=== PATIENT | male | born 1945 | race Caucasian/White ===

== ENCOUNTER 2017-04-26 14:29 | Outpatient (CLI) | END 2017-04-26 14:30 | disposition home or self-care (01) | LOC: NONPT 14:29 | PROVIDERS: ATTEND Family Medicine | DX: J18.9 Pneumonia, unspecified organism (principal); C83.30 Diffuse large B-cell lymphoma, unspecified site | CPT/HCPCS: 80053; 85027 ==

== ENCOUNTER 2017-05-03 09:15 | Outpatient (CLI) | END 2017-05-03 09:16 | disposition home or self-care (01) | LOC: NONPT 09:15 | PROVIDERS: ATTEND Family Medicine | DX: I50.9 Heart failure, unspecified (principal); C83.30 Diffuse large B-cell lymphoma, unspecified site | CPT/HCPCS: 80053; 85025 ==

== ENCOUNTER 2017-05-24 10:11 | Outpatient (CLI) | END 2017-05-24 10:12 | disposition home or self-care (01) | LOC: NONPT 10:11 | PROVIDERS: ATTEND Family Medicine | DX: I50.9 Heart failure, unspecified (principal); C83.30 Diffuse large B-cell lymphoma, unspecified site | CPT/HCPCS: 80053; 85027 ==

== ENCOUNTER 2017-05-31 12:54 | Outpatient (CLI) | END 2017-05-31 12:55 | disposition home or self-care (01) | LOC: NONPT 12:54 | PROVIDERS: ATTEND Family Medicine | DX: I50.9 Heart failure, unspecified (principal); C85.90 Non-Hodgkin lymphoma, unspecified, unspecified site | CPT/HCPCS: 80053; 85025; 85027 ==

== ENCOUNTER 2017-06-07 11:23 | Outpatient (CLI) | END 2017-06-07 11:24 | disposition home or self-care (01) | LOC: NONPT 11:23 | PROVIDERS: ATTEND Family Medicine | DX: C85.90 Non-Hodgkin lymphoma, unspecified, unspecified site (principal); E11.9 Type 2 diabetes mellitus without complications | CPT/HCPCS: 80053; 85025; 85027 ==

== ENCOUNTER 2017-06-14 11:18 | Outpatient (CLI) | END 2017-06-14 11:19 | disposition home or self-care (01) | LOC: NONPT 11:18 | PROVIDERS: ATTEND Family Medicine | DX: C85.90 Non-Hodgkin lymphoma, unspecified, unspecified site (principal); E11.9 Type 2 diabetes mellitus without complications; I50.9 Heart failure, unspecified | CPT/HCPCS: 80053; 85025; 85027 ==

== ENCOUNTER 2017-06-21 10:44 | Outpatient (CLI) | END 2017-06-21 10:45 | disposition home or self-care (01) | LOC: NONPT 10:44 | PROVIDERS: ATTEND Family Medicine | DX: C85.90 Non-Hodgkin lymphoma, unspecified, unspecified site (principal); E11.9 Type 2 diabetes mellitus without complications; I50.9 Heart failure, unspecified | CPT/HCPCS: 80053; 85027 ==

== ENCOUNTER 2017-06-28 10:24 | Outpatient (CLI) | END 2017-06-28 10:25 | disposition home or self-care (01) | LOC: NONPT 10:24 | PROVIDERS: ATTEND Family Medicine | DX: C85.90 Non-Hodgkin lymphoma, unspecified, unspecified site (principal); E11.9 Type 2 diabetes mellitus without complications; I50.9 Heart failure, unspecified | CPT/HCPCS: 80053; 85027 ==

== ENCOUNTER 2017-06-29 07:28 | Outpatient (CLI) ==
[2017-06-29] MEDS ORDERED: TYLENOL PO STA (11:07)
[2017-06-29] MEDS ORDERED: LASIX IVP STA (13:32)
[2017-06-29] MEDS ORDERED: BENADRYL 25 MG in SODIUM CHLORIDE 100 ML IV STA (13:32)
[2017-06-29] MEDS ORDERED: HEPARIN 500 UNIT/5 ML (PORT ACCESS TRAY ONLY) IVF ONE (15:16)
[2017-06-29 18:28] VITALS: BP 111/75; TEMP 97.9
== END 2017-06-29 07:29 | disposition home or self-care (01) ==
LOC: LAB 07:28 → OUTPT 07:29
PROVIDERS: ATTEND Internal Medicine Hematology & Oncology
DX: C85.10 Unspecified B-cell lymphoma, unspecified site (principal); D72.829 Elevated white blood cell count, unspecified; D50.9 Iron deficiency anemia, unspecified; E78.5 Hyperlipidemia, unspecified; I10 Essential (primary) hypertension; E11.9 Type 2 diabetes mellitus without complications; I35.0 Nonrheumatic aortic (valve) stenosis; I26.99 Other pulmonary embolism without acute cor pulmonale; G47.30 Sleep apnea, unspecified
CPT/HCPCS: 36415; 36430; 86850; 86900; 86922; 96365; 96366

== ENCOUNTER 2017-07-12 12:31 | Outpatient (CLI) | END 2017-07-12 12:32 | disposition home or self-care (01) | LOC: NONPT 12:31 | PROVIDERS: ATTEND Family Medicine | DX: C85.90 Non-Hodgkin lymphoma, unspecified, unspecified site (principal); I50.9 Heart failure, unspecified; E11.9 Type 2 diabetes mellitus without complications | CPT/HCPCS: 80053; 85027 ==

== ENCOUNTER 2017-07-13 07:29 | Outpatient (CLI) ==
[2017-07-13] MEDS ORDERED: LASIX IVP STA ×2 (11:34→14:54)
[2017-07-13] MEDS ORDERED: HEPARIN 500 UNIT/5 ML (PORT ACCESS TRAY ONLY) IVF ONE (15:16)
[2017-07-13] MEDS ORDERED: SALINE FLUSH (PORT ACCESS TRAY USE ONLY) IVF ONE (15:16)
[2017-07-13 15:55] VITALS: BP 122/68; TEMP 98.1
== END 2017-07-13 07:30 | disposition home or self-care (01) ==
LOC: LAB 07:29 → OUTPT 07:30
PROVIDERS: ATTEND Internal Medicine Hematology & Oncology
DX: C85.10 Unspecified B-cell lymphoma, unspecified site (principal); D72.829 Elevated white blood cell count, unspecified; D50.9 Iron deficiency anemia, unspecified; E78.5 Hyperlipidemia, unspecified; I10 Essential (primary) hypertension; E11.9 Type 2 diabetes mellitus without complications; G47.30 Sleep apnea, unspecified; I35.0 Nonrheumatic aortic (valve) stenosis; I26.99 Other pulmonary embolism without acute cor pulmonale
CPT/HCPCS: 36415; 36430; 86850; 86900; 86922; 96375

== ENCOUNTER 2017-07-19 13:01 | Outpatient (CLI) | payer OTHER | END 2017-07-19 13:02 | disposition home or self-care (01) | LOC: NONPT 13:01 | PROVIDERS: ATTEND Family Medicine | DX: C83.33 Diffuse large B-cell lymphoma, intra-abdominal lymph nodes (principal); E11.649 Type 2 diabetes mellitus with hypoglycemia without coma; I50.32 Chronic diastolic (congestive) heart failure | CPT/HCPCS: 80053; 85027 ==

== ENCOUNTER 2017-07-20 10:24 | Outpatient (CLI) | payer OTHER ==
[2017-07-20] MEDS ORDERED: TYLENOL PO STA (12:05)
[2017-07-20] MEDS ORDERED: BENADRYL 25 MG in SODIUM CHLORIDE 100 ML IV STA (12:06)
[2017-07-20] MEDS ORDERED: LASIX IVP PRN (12:06)
[2017-07-20] MEDS ORDERED: SALINE FLUSH (PORT ACCESS TRAY USE ONLY) IVF ONE (12:10)
[2017-07-20] MEDS ORDERED: HEPARIN 500 UNIT/5 ML (PORT ACCESS TRAY ONLY) IVF ONE (12:10)
[2017-07-20 17:11] VITALS: BP 108/71; TEMP 97.4
[2017-07-20] MEDS ORDERED: LASIX IVP STA (17:13)
== END 2017-07-20 17:20 | disposition home or self-care (01) ==
LOC: LAB 10:24 → OPMED 17:19
PROVIDERS: ATTEND Internal Medicine Hematology & Oncology
DX: C85.10 Unspecified B-cell lymphoma, unspecified site (principal); D50.9 Iron deficiency anemia, unspecified; I35.0 Nonrheumatic aortic (valve) stenosis; E78.5 Hyperlipidemia, unspecified; I10 Essential (primary) hypertension; D72.829 Elevated white blood cell count, unspecified; I26.99 Other pulmonary embolism without acute cor pulmonale; G47.30 Sleep apnea, unspecified; E11.9 Type 2 diabetes mellitus without complications
CPT/HCPCS: 36415; 36430; 86850; 86900; 86922; 96365; 96376

== ENCOUNTER 2017-07-26 11:57 | Outpatient (CLI) | END 2017-07-26 11:58 | disposition home or self-care (01) | LOC: NONPT 11:57 | PROVIDERS: ATTEND Family Medicine | DX: C83.33 Diffuse large B-cell lymphoma, intra-abdominal lymph nodes (principal); I50.32 Chronic diastolic (congestive) heart failure; E11.649 Type 2 diabetes mellitus with hypoglycemia without coma; D50.9 Iron deficiency anemia, unspecified | CPT/HCPCS: 80053; 85027 ==

== ENCOUNTER 2017-07-27 07:10 | Outpatient (CLI) | payer OTHER ==
[2017-07-27] MEDS ORDERED: TYLENOL PO STA (08:37)
[2017-07-27] MEDS ORDERED: BENADRYL 25 MG in SODIUM CHLORIDE 100 ML IV STA (08:39)
[2017-07-27] MEDS ORDERED: LASIX IVP STA ×2 (11:17→11:31)
[2017-07-27 13:30] VITALS: BP 105/66; TEMP 98.2
[2017-07-27] MEDS ORDERED: SALINE FLUSH (PORT ACCESS TRAY USE ONLY) IVF ONE (14:57)
[2017-07-27] MEDS ORDERED: HEPARIN 500 UNIT/5 ML (PORT ACCESS TRAY ONLY) IVF ONE (14:57)
== END 2017-07-27 07:11 | disposition home or self-care (01) ==
LOC: LAB 07:10 → OUTPT 07:11
PROVIDERS: ATTEND Internal Medicine Hematology & Oncology
DX: C85.10 Unspecified B-cell lymphoma, unspecified site (principal); D50.9 Iron deficiency anemia, unspecified; D72.829 Elevated white blood cell count, unspecified; E78.5 Hyperlipidemia, unspecified; I10 Essential (primary) hypertension; E11.9 Type 2 diabetes mellitus without complications; I35.0 Nonrheumatic aortic (valve) stenosis; I26.99 Other pulmonary embolism without acute cor pulmonale
CPT/HCPCS: 36415; 36430; 86850; 86900; 86922; 96365; 96376

== ENCOUNTER 2017-08-02 10:16 | Outpatient (CLI) | END 2017-08-02 10:17 | disposition home or self-care (01) | LOC: NONPT 10:16 | PROVIDERS: ATTEND Family Medicine | DX: C83.33 Diffuse large B-cell lymphoma, intra-abdominal lymph nodes (principal); D50.9 Iron deficiency anemia, unspecified; I50.32 Chronic diastolic (congestive) heart failure; E11.649 Type 2 diabetes mellitus with hypoglycemia without coma | CPT/HCPCS: 80053; 85027 ==

== ENCOUNTER 2017-08-03 08:41 | Outpatient (CLI) ==
[2017-08-03] MEDS ORDERED: TYLENOL PO STA (10:31)
[2017-08-03] MEDS ORDERED: BENADRYL 25 MG in SODIUM CHLORIDE 100 ML IV STA (10:31)
[2017-08-03] MEDS ORDERED: LASIX IVP STA ×2 (10:32→13:46)
[2017-08-03 15:34] VITALS: BP 99/63; TEMP 97.4
[2017-08-03] MEDS ORDERED: HEPARIN 500 UNIT/5 ML (PORT ACCESS TRAY ONLY) IVF ONE (15:38)
[2017-08-03] MEDS ORDERED: SALINE FLUSH (PORT ACCESS TRAY USE ONLY) IVF ONE (15:38)
== END 2017-08-03 15:50 | disposition home or self-care (01) ==
LOC: OPMED 08:41
PROVIDERS: ATTEND Internal Medicine Hematology & Oncology
DX: C85.10 Unspecified B-cell lymphoma, unspecified site (principal); D50.9 Iron deficiency anemia, unspecified; I35.0 Nonrheumatic aortic (valve) stenosis; D72.829 Elevated white blood cell count, unspecified; I26.99 Other pulmonary embolism without acute cor pulmonale; K92.2 Gastrointestinal hemorrhage, unspecified; I10 Essential (primary) hypertension; E78.5 Hyperlipidemia, unspecified; E11.9 Type 2 diabetes mellitus without complications; G47.30 Sleep apnea, unspecified
CPT/HCPCS: 36415; 36430; 86850; 86900; 86922

== ENCOUNTER 2017-08-09 10:10 | Outpatient (CLI) | END 2017-08-09 10:11 | disposition home or self-care (01) | LOC: NONPT 10:10 | PROVIDERS: ATTEND Family Medicine | DX: C83.33 Diffuse large B-cell lymphoma, intra-abdominal lymph nodes (principal); I50.32 Chronic diastolic (congestive) heart failure; E11.649 Type 2 diabetes mellitus with hypoglycemia without coma; D50.9 Iron deficiency anemia, unspecified | CPT/HCPCS: 80053; 85027 ==

== ENCOUNTER 2017-08-16 10:02 | Outpatient (CLI) | END 2017-08-16 10:03 | disposition home or self-care (01) | LOC: NONPT 10:02 | PROVIDERS: ATTEND Family Medicine | DX: C83.33 Diffuse large B-cell lymphoma, intra-abdominal lymph nodes (principal); D50.9 Iron deficiency anemia, unspecified; I50.32 Chronic diastolic (congestive) heart failure; E11.649 Type 2 diabetes mellitus with hypoglycemia without coma | CPT/HCPCS: 80053; 85027 ==

== ENCOUNTER 2017-09-06 09:49 | Outpatient (CLI) | END 2017-09-06 09:50 | disposition home or self-care (01) | LOC: NONPT 09:49 | PROVIDERS: ATTEND Family Medicine | DX: C83.33 Diffuse large B-cell lymphoma, intra-abdominal lymph nodes (principal); I50.32 Chronic diastolic (congestive) heart failure; E11.649 Type 2 diabetes mellitus with hypoglycemia without coma; D50.9 Iron deficiency anemia, unspecified | CPT/HCPCS: 80053; 85025 ==

== ENCOUNTER 2017-09-13 11:23 | Outpatient (CLI) | END 2017-09-13 11:24 | disposition home or self-care (01) | LOC: NONPT 11:23 | PROVIDERS: ATTEND Family Medicine | DX: C83.33 Diffuse large B-cell lymphoma, intra-abdominal lymph nodes (principal); I50.32 Chronic diastolic (congestive) heart failure; E11.649 Type 2 diabetes mellitus with hypoglycemia without coma; D50.9 Iron deficiency anemia, unspecified | CPT/HCPCS: 80053; 82232; 83615; 85007; 85025 ==

== ENCOUNTER 2017-09-27 10:53 | Outpatient (CLI) | payer OTHER | END 2017-09-27 10:54 | disposition home or self-care (01) | LOC: NONPT 10:53 | PROVIDERS: ATTEND Family Medicine | DX: C83.33 Diffuse large B-cell lymphoma, intra-abdominal lymph nodes (principal); D50.9 Iron deficiency anemia, unspecified; I50.32 Chronic diastolic (congestive) heart failure; E11.649 Type 2 diabetes mellitus with hypoglycemia without coma | CPT/HCPCS: 80053; 85025 ==

== ENCOUNTER 2017-10-12 07:23 | Outpatient (CLI) | END 2017-10-12 07:24 | disposition home or self-care (01) | LOC: LAB 07:23 | PROVIDERS: ATTEND Internal Medicine Hematology & Oncology | DX: C85.10 Unspecified B-cell lymphoma, unspecified site (principal); D64.9 Anemia, unspecified; D72.829 Elevated white blood cell count, unspecified | CPT/HCPCS: 36415; 85008; 85025 ==

== ENCOUNTER 2017-10-19 07:22 | Outpatient (CLI) | END 2017-10-19 07:23 | disposition home or self-care (01) | LOC: LAB 07:22 | PROVIDERS: ATTEND Internal Medicine Hematology & Oncology | DX: C85.10 Unspecified B-cell lymphoma, unspecified site (principal); D64.9 Anemia, unspecified; D72.829 Elevated white blood cell count, unspecified | CPT/HCPCS: 36415; 85025 ==

== ENCOUNTER 2017-11-09 07:27 | Outpatient (CLI) | END 2017-11-09 07:28 | disposition home or self-care (01) | LOC: LAB 07:27 | PROVIDERS: ATTEND Internal Medicine Hematology & Oncology | DX: C85.10 Unspecified B-cell lymphoma, unspecified site (principal); D72.829 Elevated white blood cell count, unspecified; D64.9 Anemia, unspecified | CPT/HCPCS: 36415; 85008; 85025 ==

== ENCOUNTER 2017-12-14 07:27 | Outpatient (CLI) | END 2017-12-14 07:28 | disposition home or self-care (01) | LOC: LAB 07:27 | PROVIDERS: ATTEND Internal Medicine Hematology & Oncology | DX: C85.10 Unspecified B-cell lymphoma, unspecified site (principal); D64.9 Anemia, unspecified; D72.829 Elevated white blood cell count, unspecified | CPT/HCPCS: 36415; 80053; 82232; 82728; 83540; 83550; 83615; 85008; 85025 ==

== ENCOUNTER 2018-01-04 07:09 | Outpatient (CLI) | payer OTHER | END 2018-01-04 07:10 | disposition home or self-care (01) | LOC: LAB 07:09 | PROVIDERS: ATTEND Internal Medicine Hematology & Oncology | DX: C85.10 Unspecified B-cell lymphoma, unspecified site (principal); D64.9 Anemia, unspecified; D72.829 Elevated white blood cell count, unspecified | CPT/HCPCS: 36415; 85008; 85025 ==

== ENCOUNTER 2018-01-11 07:26 | Outpatient (CLI) | payer OTHER | END 2018-01-11 07:27 | disposition home or self-care (01) | LOC: LAB 07:26 | PROVIDERS: ATTEND Internal Medicine Hematology & Oncology | DX: C85.10 Unspecified B-cell lymphoma, unspecified site (principal); D72.829 Elevated white blood cell count, unspecified; D64.9 Anemia, unspecified | CPT/HCPCS: 36415; 85008; 85025 ==

== ENCOUNTER 2018-02-22 07:20 | Outpatient (CLI) | payer OTHER | END 2018-02-22 07:21 | disposition home or self-care (01) | LOC: LAB 07:20 | PROVIDERS: ATTEND Internal Medicine Hematology & Oncology | DX: C85.10 Unspecified B-cell lymphoma, unspecified site (principal); D64.9 Anemia, unspecified; D72.829 Elevated white blood cell count, unspecified | CPT/HCPCS: 36415; 85007; 85025 ==

== ENCOUNTER 2018-08-20 13:00 | Emergency (ER) ==
[2018-08-20 13:11] VITALS: TEMP 99.7; BMI 30.4
--- NOTE | 2018-08-20 13:52 | ED.PDOC ---
General ED Provider: Dr. JACKY GARCIA Chief Complaint: Altered Mental Status Stated Complaint: 72 y old gentleman with ca and heart condition on meds went to soccer game watching grandson and he says he overheated and maybe even fainted brought o home and ER by the family vaguely remebers,Stable now, Time Seen by Physician: 13:20 Mode of Arrival: Walk-In Information Source: Patient, Family Exam Limitations: No limitations Primary Care Provider: SHEILA SUAREZ Nursing and Triage Documentation Reviewed and Agree: Yes Does patient meet sepsis criteria?: No System Inflammatory Response Syndrome: Not Applicable Sepsis Protocol: For patient's 13 years and over: Temp is 96.8 and below OR 101 and greater Pulse >90 BPM Resp >20/minute Acutely Altered Mental Status Are patient's symptoms suggestive of a new infection, such as: -Pneumonia -Skin, Soft Tissue -Endocarditis -UTI -Bone, Joint Infection -Implantable Device -Acute Abdominal Infection -Wound Infection -Meningitis -Blood Stream Catheter Infection -Unknown Review of Systems - Review Of Systems Constitutional: Reports: No symptoms Eyes: Reports: No symptoms Ears, Nose, Mouth, Throat: Reports: No symptoms Respiratory: Reports: No symptoms Cardiac: Reports: Syncope GI: Reports: No symptoms : Reports: No symptoms Musculoskeletal: Reports: No symptoms Skin: Reports: No symptoms Neurological: Reports: No symptoms Endocrine: Reports: No symptoms Hematologic/Lymphatic: Reports: No symptoms All Other Systems: Reviewed and Negative Past Medical History - Past Medical History Endocrine: Reports: None Cardiovascular: Reports: Hypertension Respiratory: Reports: None Hematological: Reports: None Gastrointestinal: Reports: None Genitourinary: Reports: None Neuro/Psych: Reports: None Musculoskeletal: Reports: None Cancer: Reports: None - Surgical History General Surgical History: Reports: None - Family History Family History: Reports: None - Social History Smoking Status: Former smoker Hx Substance Use: No Alcohol Screening: None - Immunizations Tetanus Shot up to Date: Yes Physical Exam - Physical Exam Appearance: Well-appearing Ill-appearing: Mild Pain Distress: None Eyes: SERGIO, EOMI, Conjunctiva clear ENT: Ears normal, Nose normal, Oropharynx normal Respiratory: Airway patent, Breath sounds clear Cardiovascular: RRR, Pulses normal GI/: Soft, Nontender Musculoskeletal: Normal strength, ROM intact Skin: Warm, Dry Neurological: Sensation intact, Motor intact, Reflexes intact, Alert, Oriented Psychiatric: Affect appropriate Interpretation - Radiology Interpretation Radiology Interpretation By: ED Physician Radiology Results: No acute changes Exam Interpreted: CXR Xray Comments: Post sternotomy CXR with no avute changes Critical Care Note - Critical Care Note Total Time (mins): 0 Course - Course Hematology/Chemistry: 08/20/18 14:15 08/20/18 14:15 Orders, Labs, Meds: Lab Review 08/20/18 08/20/18 08/20/18 14:15 14:15 14:43 WBC 4.72 RBC 4.04 L Hgb 11.5 L Hct 35.6 L MCV 88.1 MCH 28.5 MCHC 32.3 RDW Coeff of Guillaume 15.1 H Plt Count 93 L Immature Gran % (Auto) 1.1 Neut % (Auto) 69.4 Lymph % (Auto) 17.4 [place] % (Auto) 10.0 Eos % (Auto) 1.5 Baso % (Auto) 0.6 Immature Gran # (Auto) 0.1 Neut # (Auto) 3.3 Lymph # (Auto) 0.8 [place] # (Auto) 0.5 Eos # (Auto) 0.1 Baso # (Auto) 0.0 Sodium 135.8 Potassium 4.17 Chloride 98.3 Carbon Dioxide 30.2 H Anion Gap 11.47 BUN 26.7 H Creatinine 0.70 Estimated GFR (MDRD) 110.00 BUN/Creatinine Ratio 38.14 Glucose 161.7 H Calcium 8.69 Total Bilirubin 0.89 AST 46.0 ALT 54.3 H Alkaline Phosphatase 89.1 Total Creatine Kinase 64.6 Troponin I 0.012 Total Protein 5.90 L Albumin 3.73 Globulin 2.17 Albumin/Globulin Ratio 1.71 Urine Color Yellow Urine Clarity Clear Urine pH 5.0 Ur Specific [place] 1.020 Urine Protein Negative Urine Glucose (UA) Negative Urine Ketones Negative Urine Blood Trace-intact Urine Nitrite Negative Urine Bilirubin Negative Urine Urobilinogen 0.2 Ur Leukocyte Esterase Negative Urine Microscopic RBC 0-2 Ur Squamous Epith Cells 5-10 Hyaline Casts 10-20 Urine Mucus 2+ Orders Category Date Time Status EKG-(ED ONLY) Stat CARDIO 08/20/18 13:52 Completed ED IV/MEDIPORT/POWERPORT .ONCE EMERGENCY 08/20/18 13:54 Active CBC W/ AUTO DIFF Stat LAB 08/20/18 14:15 Completed COMPREHENSIVE METABOLIC PANEL Stat LAB 08/20/18 14:15 Completed CREATINE KINASE Stat LAB 08/20/18 14:15 Completed TROPONIN I Stat LAB 08/20/18 14:15 Completed URINALYSIS C & S IF INDICATED Stat LAB 08/20/18 14:43 Completed 0.9 % Sodium Chloride [Saline Flush] MEDS 08/20/18 13:54 Ordered 1 syr IVF PRN PRN Potassium Chloride [K-Dur] MEDS 08/20/18 14:49 Discontinued 40 meq PO ONCE STA Potassium Chloride [Potassium Chl 10% Oral Cynthia] MEDS 08/20/18 14:40 Discontinued 40 meq PO ONCE STA Sodium Chloride 0.9% [Sodium Chloride] 1,000 ml MEDS 08/20/18 13:55 Discontinued IV BOLUS CHEST, 1V AP ONLY Stat RADS 08/20/18 13:52 Taken Medications Generic Name Dose Route Start Last Admin Trade Name Freq PRN Reason Stop Dose Admin Sodium Chloride 1 syr 08/20/18 13:54 Saline Flush IVF PRN PRN To flush IV Discontinued Medications Generic Name Dose Route Start Last Admin Trade Name Freq PRN Reason Stop Dose Admin Sodium Chloride 1,000 mls @ 1,000 mls/hr 08/20/18 13:55 08/20/18 14:24 Sodium Chloride IV 08/20/18 14:54 1,000 mls/hr BOLUS STA Administration Potassium Chloride 40 meq 08/20/18 14:40 08/20/18 14:50 Potassium Chl 10% Oral Cynthia PO 08/20/18 14:41 Not Given ONCE STA Potassium Chloride 40 meq 08/20/18 14:49 08/20/18 14:56 K-Dur PO 08/20/18 14:50 40 meq ONCE STA Administration Vital Signs: Temp Pulse Resp BP Pulse Ox 08/20/18 14:39 68 119/41 L 97 08/20/18 13:43 60 121/39 L 96 08/20/18 13:29 62 117/46 L 95 08/20/18 13:27 95 08/20/18 13:01 99.7 F H 70 22 130/66 92 L KJ Risk Score KJ Risk Score: Risk Score Odds of by 30D 0 0.1 (0.1-0.2) 1 0.3 (0.2-0.3) 2 0.4 (0.3-0.5) 3 0.7 (0.6-0.9) 4 1.2 (1.0-1.5) 5 2.2 (1.9-2.6) 6 3.0 (2.5-3.6) 7 4.8 (3.8-6.1) Departure - Departure Time of Disposition: 16:02 Disposition: HOME SELF-CARE Discharge Problem: Near syncope Instructions: Hyperemesis Gravidarum (ED), Dehydration (ED) Condition: Good Pt referred to PMD for follow-up: Yes IPMP verified?: No Additional Instructions: Continue home meds as written/no chnges/however maintain a good body hydration and urine otput Allergies/Adverse Reactions: Allergies Penicillins Adverse Reaction (Verified 08/20/18 13:15) Home Medications: Ambulatory Orders Allopurinol 300 mg PO DAILY 08/20/18 Atorvastatin Calcium 40 mg PO BEDTIME 08/20/18 Diltiazem HCl 60 mg PO QID 08/20/18 Furosemide 20 mg PO DAILY 08/20/18 Ibrutinib [Imbruvica] 140 mg PO DAILY 08/20/18 Metoprolol Succinate 50 mg PO DAILY 08/20/18 Tamsulosin HCl [Flomax] 0.4 mg PO DAILY 08/20/18 Disposition Discussed With: Patient, Family
[2018-08-20] MEDS ORDERED: SODIUM CHLORIDE 1,000 ML IV STA (13:55)
[2018-08-20 14:40] VITALS: BP 119/41
[2018-08-20] MEDS ORDERED: POTASSIUM CHL 10% ORAL SOL PO STA (14:40)
[2018-08-20] MEDS ORDERED: K-DUR PO STA (14:49)
--- NOTE | 2018-08-21 10:33 | DI ---
EXAM: Chest one view HISTORY: Syncope, heat effect COMPARISON: None TECHNIQUE: Single view of the chest was performed FINDINGS: Left chest port appears unchanged. Mild left basilar subsegmental atelectasis and/or scar ring. No airspace consolidation There is no pleural effusion or pneumothorax. The heart is normal in size. The mediastinal contour is normal. Median sternotomy wires There are no acute abnormalitie s of the bones. Old healed fracture deformity left proximal humerus. IMPRESSION: No acute cardiopulmonary process.
== END 2018-08-20 16:10 | disposition home or self-care (01) ==
LOC: ED 13:00
DX: R41.82 Altered mental status, unspecified (principal); R55 Syncope and collapse
CPT/HCPCS: 36415; 80053; 81001; 82550; 84484; 85025; 93005; 93010; 96360; 99283